=== PATIENT | female | born 1970 | race Caucasian/White ===

== ENCOUNTER 2021-12-30 16:02 | Emergency (ER) | payer SELFPAY ==
[~2021-12-30] VITALS: Ht 160 cm; Wt 68.2 kg
[2021-12-30 18:29] VITALS: BP 123/74
[2021-12-30] MEDS ORDERED: IBUPROFEN 600 MG TABLET PO ONE (18:45)
== END 2021-12-30 22:50 | disposition left against medical advice (07) ==
LOC: EMS 16:35
DX: S16.1XXA Strain of muscle, fascia and tendon at neck level, initial encounter (principal); S60.222A Contusion of left hand, initial encounter; S09.90XA Unspecified injury of head, initial encounter; F17.210 Nicotine dependence, cigarettes, uncomplicated; Y04.0XXA Assault by unarmed brawl or fight, initial encounter; Y93.89 Activity, other specified; Y92.89 Other specified places as the place of occurrence of the external cause; Y99.8 Other external cause status
CPT/HCPCS: 70450; 72125; 99284